=== PATIENT | female | born 1945 | race Caucasian/White ===

== ENCOUNTER → 2018-01-11 10:52 | Outpatient (CLI) | payer MEDICARE, BC ==
[~2018-01-11] VITALS: Ht 157.5 cm; Wt 90.7 kg
--- NOTE | ~2018-01-11 | HEMODYNAMI ---
PATIENT:OMAIRA ESTRELLA MEDICAL RECORD: [id number] : 41 LOCATION:[facility] ADMISSION DATE: 01/11/18 Generatedon:01/11/201813:39 Patient name: OMAIRA ESTRELLA Patient #: [id number] SSN: : 1945 Date of study: 01/11/2018 Page: Of Hemodynamic Procedure Report Patient Data Patient Demographics Procedure consent was obtained First Name: OMAIRA Gender: Female Last Name: SAMEER : 1945 Patient #: [id number] Age: 72 year(s) Race: Unknown Additional ID: [id number] Contact details Address: [address] [place] [address] State: [place] City: [place] Zip code: [address] Past Medical History Allergies: No known allergies Admission Admission Data Admission Date: 01/11/2018 Admission Time: 10:52 Procedure Procedure Types Cath Procedure Diagnostic Procedure Cardioversion External MARK Procedure Description Procedure Date Procedure Date: 01/11/2018 Procedure Start Time: 13:23 Procedure End Time: 13:38 Procedure Staff Name Function Venancio Ha MD Performing Physician Carmen Prado RT Monitor Haroon Aburto RN Nurse Carla Fuchs Procedures Analyst Francisco Paez Procedures Analyst Prabhjot Maneul MD Additional personnel Procedure Data Procedure Complications No complications Procedure Medications Medication Administration Route Dosage Oxygen etCO2 Nasal cannula 2 l/min Refer to Anesthesia Notes for Sedation Medications Hurricaine Pellston [address] Sprays Hemodynamics Rest Heart Rate: 82 (bpm) Snapshots Pre Cath Intra NCS Post Cath Vital Signs Time Heart Resp SPO2 etCO2 NIBP (mmHg) Rhythm Pain Sedation Rate (ipm) (%) (mmHg) Status Level (bpm) 12:58:07 83 19 99 0 147/85(106) A-Flutter 0 (11) 10(A) , No pain 13:03:58 92 14 96 34.4 146/88(113) A-Flutter 0 (11) 10(A) , No pain 13:08:26 90 14 96 32.9 140/83(115) A-Flutter 0 (11) 10(A) , No pain 13:14:29 77 11 96 32.9 133/86(113) A-Flutter 0 (11) 10(A) , No pain 13:18:51 85 21 97 30.7 139/85(113) A-Flutter 0 (11) 10(A) , No pain 13:23:21 84 23 97 35.9 139/86(95) A-Flutter 0 (11) 10(A) , No pain 13:27:51 97 24 97 8.9 130/70(99) A-Flutter 0 (11) 10(A) , No pain 13:35:47 58 16 96 21.6 114/60(80) SB 0 (11) 10(A) , No pain Medications Time Medication Route Dose Verified Delivered Reason Notes Effectiv eness by by 12:59:57 Oxygen etCO2 2 Venancio Patiño used for Nasal l/min St Jerrod Aburto RN procedure cannula MD 13:00:06 Refer to Venancio Patiño Anesthesia St Jerrod Aburto RN Notes for MD Sedation Medications 13:20:55 Hurricaine [address] Venancio Patiño used for Pellston Sprays St Jerrod Aburto technical analyst MD Procedure Log Time Note 12:46:08 Time tracking: Regular hours (M-F 7:00 - 5:00) 12:46:12 Plan of Care:Hemodynamics will remain stable., Cardiac rhythm will remain stable., Comfort level will be maintained., Respiratory function will remain adequate., Patient/ family verbilizes understanding of procedure., Procedure tolerated without complication., Recovers from procedure without complications.. 12:47:30 Prabhjot Manuel MD sent for patient. Start room use. 12:53:14 Patient received from Pre/Post Procedure Room to CCL 3 Alert and oriented. Tansferred to table in Supine position. 12:53:14 Warm blankets applied, and adrian hugger turned on for patient comfort. 12:53:15 Correct patient and procedure confirmed by team. 12:53:16 Signed procedure consent form obtained from patient. 12:53:17 ECG and BP/O2 sat monitors applied to patient. 12:53:36 Full Disclosure recording started 12:56:46 Vital chart was started 12:56:51 Rhythm: atrial flutter 12:57:12 H&P Date Dictated: 01/04/2018 Within 30 days and on chart., H&P Addendum completed by physician on day of procedure. (MUST COMPLETE FOR ALL OUTPATIENTS). 12:57:14 Pre-procedure instructions explained to patient. 12:57:14 Pre-op teaching completed and patient verbalized understanding. 12:57:16 Family in waiting room. 12:57:17 Patient NPO since Midnight. 12:57:23 Patient allergic to No known allergies 12:57:30 Is the patient allergic to Iodine/contrast media? No. 12:57:35 Is patient on blood thinner?Yes 12:57:38 ACC The patient was administered the following blood thiners within the last 24 hours: Eliquis 12:57:40 Patient diabetic? No. 12:57:44 ----Pre-sedation anethsthesia assessment.---- 12:58:41 SEE ANESTHESIA NOTES FOR PREASSESSMENT 12:59:57 Oxygen 2 l/min etCO2 Nasal cannula was administered by Haroon Aburto RN; used for procedure; 13:00:06 Refer to Anesthesia Notes for Sedation Medications was administered by Haroon Aburto RN; ; 13:02:14 Patient pain scale 0/10 ?. 13:02:22 IV patent on arrival in left forearm with 0.9% NaCl at [facility]. 13:02:24 Lab results completed and on chart. 13:02:27 Alarms reviewed by Eva Peres 13:03:01 Carla Fuchs Broiler Supervisor present for MARK. 13:03:02 Francisco Paez Broiler Supervisor present for MARK. 13:04:11 Quick combo pads placed on patients chest and back. 13:04:23 Quick Combo opened to sterile field. 13:08:45 Baseline sample Acquired. 13:17:27 Prabhjot Maneul MD present and monitoring patient for TIVA. 13:19:25 Final Timeout: patient, procedure, and site verified with staff and physician. All members of the team are in agreement. 13:19:31 Physical assessment completed. ASA score P 2 - A patient with mild systemic disease as per Venancio Ha MD. 13:19:34 Sedation plan: TIVA Medication:Propofol 13:20:55 Hurricaine Pellston 1 Sprays P.O. was administered by Buffie Aburto RN; used for procedure; 13:23:08 Procedure started. 13:23:09 MARK started. 13:28:52 MARK completed. 13:30:54 Defibrillator synced and charged to 200 Joules. 13:30:55 Shock delivered. 13:30:57 Patient cardioverted to sinus bradycardia. 13:31:07 Procedure ended.(Physican Out) 13:33:13 Post procedure rhythm: sinus bradycardia 13:33:16 Post procedure instruction explained to patient.Patient verbalizes understanding. 13:33:16 Patient needs reinforcement of post procedure teaching. 13:33:28 Procedure Complication : No complications 13:33:36 See physician's report for complete and final results. 13:33:47 Procedure and supply charges have been captured, reviewed, submitted and are correct. 13:38:32 Vital chart was stopped 13:38:34 Report given to Pre/Post Procedure Room. 13:38:37 Patient transfered to Pre/Post Procedure Room with Stretcher. 13:38:39 Procedure ended. 13:38:39 Full Disclosure recording stopped 13:38:42 End room use (Document Last) Device Usage Item Manufacture Quantity Catalog Hospital Part Current Minimal Lot# / Name Number Charge Number Stock Stock Remy al# Code [id number] [id number] Combo Signature Audit Freedom Stage Time Signature Unsigned Intra-Procedure 01/11/2018 Carmen 1:39:36 PM Counts RT(R) Signatures Monitor : Carmen Signature : Counts RT Date : Time : [facility] [address] [id number]
--- NOTE | ~2018-01-11 | TEE ---
PATIENT:OMAIRA ESTRELLA MEDICAL RECORD: [id number] LOCATION:D.[facility] AGE OF PATIENT: 72 ADMISSION DATE: 01/11/18 SEX: F REFERRING PHYSICIAN: INTERPRETING PHYSICIAN: KAYKAY GRAY MD TRANSESOPHAGEAL ECHOCARDIOGRAM Date: 01/11/18 MARK CHARGE Y INDICATIONS: ATRIAL FIB, ASSESS FOR CLOTS PRE-CARDIOVERSION PREMEDICATIONS: PATIENT'S RESPONSE PROCEDURE DOPPLER MEASUREMENTS: LVIT LA PA RA LVOT RVOT Asc. Ao AV Gradient Peak AV Mean AV Area MV Gradient Peak MV Mean MV Area INTERPRETATION: Doppler: 2-D: COLOR FLOW DOPPLER NORMAL SALINE STUDY: MISCELLANOUS: DIAGNOSIS: PLAN: Case Management Rn:3 Dr. Starkey Pharmaceutical Detailer: Dian MARTINS COMMENTS: DATE OF SERVICE: 01/11/2018 TRANSESOPHAGEAL NOTE After general sedation via TIVA via anesthesia, transesophageal Omniplane probe was placed in the distal esophagus and proximal stomach without difficulty. FINDINGS: No LVH. LV internal dimension is normal. Wall motion normal. EF equal to 55%. Aortic valve is tricuspid with adequate valve excursion. No TRANSESOPHAGEAL ECHOCARDIOGRAM REPORT [id number] OMAIRA ESTRELLA significant AI by color flow imaging. Left atrium is well visualized, appears with normal dimensions. Left atrial appendage well visualized with no evidence of thrombus and good contractility via Doppler interrogation. Mitral valve shows no prolapse. Mild MR only. Right-sided chamber is grossly normal. Mild TR. IMPRESSION: At the end of the procedure, transesophageal Omniplane probe was turned posteriorly and this showed no atherosclerotic debris in the descending aorta. TRANSINT:[id number] Voice Confirmation ID: [id number] DOCUMENT ID: [id number] KAYKAY GRAY MD CC: [id number] DICTATION DATE: 01/11/18 1333 LATHMAKER: 01/11/18 1424 REG [facility] [address] [place] [address]
--- NOTE | ~2018-01-11 | OP ---
PATIENT NAME: OMAIRA ESTRELLA MEDICAL RECORD: [id number] :41 LOCATION:D.[facility] ADMISSION DATE: SURGEON: KAYKAY GRAY MD DATE OF OPERATION: 01/11/2018 PROCEDURE: Cardioversion. DESCRIPTION OF PROCEDURE: After general sedation via anesthesia via TIVA, a post-transesophageal single synchronized shock was successful restoring atrial fibrillation to normal sinus rhythm. IMPRESSION: Successful cardioversion 200 joules. COMPLICATIONS: None. DISPOSITION: To the floor, stable. TRANSINT:[id number] Voice Confirmation ID: [id number] DOCUMENT ID: [id number] KAYKAY GRAY MD CC: [id number] DICTATION DATE: 01/11/18 1334 RN BABY: 01/11/18 1457 REG [facility] [address] [id number]
[~2018-01-11 10:52] MED LIST: ELIQUIS5 MG PO; FIBER-LAX625 MG PO; MULTAQ400 MG PO; OMEPRAZOLE20 M1 PO; TOPROL XL100 MG PO; ZOCOR10 MG PO
[2018-01-11 11:46] VITALS: BP 127/84; Ht 157.5 cm; Wt 90.7 kg
[2018-01-11 12:03] LABS: BASOPHILS 0.3 % (0-2); EOSINOPHILS 2.1 % (0-7); HEMATOCRIT 37.8 % (36.0-48.0); HEMOGLOBIN 12.4 g/dL (12-16); IMMATURE GRANULOCYTES 0.4 % (0-5); LYMPHOCYTES 26.6 % (15-50); MCH 30.8 pg (26.0-34.0); MCHC 32.8 g/dL (31.0-37.0); MEAN PLATELET VOLUME 11.9 fL (7.4-10.4); MONOCYTES 11.1 % (2-11); NEUTROPHILS 59.5 % (40-80); PLATELET COUNT 308 10x3/uL (130-400); RBC 4.02 10x6/uL (4.00-5.40); RDW 14.9 % (11.5-14.5); WBC 7.6 10x3/uL (4.8-10.8)
[2018-01-11 12:21] LABS: INR 1.4 (0.85-1.17); PROTIME 16.6 SECONDS (11.6-15.0)
[2018-01-11 13:16] LABS: ANION GAP 14.6 mmol/L (8-16); CALCIUM 9.3 mg/dL (8.5-10.1); CARBON DIOXIDE 23.5 mmol/L (21.0-32.0); CREATININE - SERUM 1.2 mg/dL (0.6-1.3); POTASSIUM - SERUM 4.1 mmol/L (3.5-5.1)
== END | disposition home or self-care (01) ==
LOC: D.CATH 10:00
PROVIDERS: Internal Medicine Interventional Cardiology
DX: I48.91 Unspecified atrial fibrillation (principal); Z01.812 Encounter for preprocedural laboratory examination

== ENCOUNTER → 2019-02-15 09:58 | Outpatient (CLI) | payer MEDICARE, BC ==
--- NOTE | ~2019-02-15 | EC ---
PATIENT:OMAIRA ESTRELLA DATE OF SERVICE: 02/15/19 SEX: F MEDICAL RECORD: [id number] DATE OF : 41 LOCATION:[facility] AGE OF PATIENT: 73 ADMISSION DATE: 02/15/19 REFERRING PHYSICIAN: INTERPRETING PHYSICIAN: KAYKAY GRAY MD ECHOCARDIOGRAM REPORT ECHO CHARGES 4 ECHO COMPLETE Date: 02/15/19 CLINICAL DIAGNOSIS: HEART MURMUR HX AFIB/HTN/MR/ TR ECHOCARDIOGRAPHIC MEASUREMENTS (adult normal given) AC root (d.<3.7cm) 2.9 cm LV Septum d (<1.2 cm> 1.3 cm Valve Excursion 2.0 cm LV Septum (systole) 1.6 cm Left Atria (s.<4.0cm> 4.6 cm LVPW d(<1.2cm) 1.4 cm RV (d.<2.3cm) 3.7 cm LVPW (sytole) 2.0 cm LV diastole(<5.6CM) 4.6 cm MV E-F(>70mm/sec) cm LV systole 2.0 cm LVOT Diameter 1.7 cm MV exc.(>10mm) 1.2 cm Est.ejection fraction (50-75%) % DOPPLER: LVIT cm/sec A 49.0 cm/sec E 98.0 cm/sec LA cm/sec RVSP 52 mmHg LVOT 92 cm/sec AOP1/2T m/s Asc. Ao 118 cm/sec RVOT 66 cm/sec RA cm/sec PA 84 cm/sec AV Gradient Peak 5.66 mmHg AV Mean 2.97 mmHg AV Area 1.5 cm MV Gradient Peak 6.48 mmHg MV Mean 1.40 mmHg MV Area cm COMMENTS: Information Coordinator: 2 LILLIAN MARTINS Metal Grader: 3 Dr. Starkey TAPE# PACS Pericardial Effusion N DATE OF SERVICE: Adequate 2D, color flow, spectral Doppler, and M-mode. Mild LVH. LV internal dimension is normal. Wall motion is normal. EF is greater than or equal to 55%. Aortic valve is sclerotic without evidence of stenosis by Doppler interrogation. Left atrium is dilated at 4.6 cm. Mitral valve shows no prolapse. Right-sided chambers are grossly normal. Mild TR. TRANSINT:[id number] Voice Confirmation ID: [id number] DOCUMENT ID: [id number] ECHOCARDIOGRAM REPORT [id number] OMAIRA ESTRELLA GREGORY A MD CC: [id number] DICTATION DATE: 02/20/19 1434 LOSS PREVENTION GUARD: 02/20/19 1806 DEP CLI 02/15/19 [id number] [place] [address]
== END | disposition home or self-care (01) ==
LOC: D.HCCECHO 09:58
PROVIDERS: ATTEND Internal Medicine Interventional Cardiology
DX: R01.1 Cardiac murmur, unspecified (principal)